=== PATIENT | female | born 1970 | race Caucasian/White ===

== ENCOUNTER 2017-09-09 16:55 | Emergency (ER) | payer OTHER ==
[~2017-09-09] VITALS: Ht 170.2 cm; Wt 64.4 kg
[~2017-09-09 16:55] MED LIST: BENZONATATE200 MG PO; IBUPROFEN800 MG PO; LEVAQUIN750 MG PO; PERCOCET 7.5-31 EACH PO; SUMATRIPTAN20 MG NAS
[2017-09-09] MEDS ORDERED: ZITHROMAX250 MG PO (19:35)
[2017-09-09] MEDS ORDERED: GUAIFENESIN AC473 ML (19:36)
[2017-09-09] MEDS ORDERED: SUMATRIPTAN SUC25 MG PO (19:36)
[2017-09-09] MEDS ORDERED: DELTASONE20 MG PO (19:39)
[2017-09-09] MEDS ORDERED: TAMIFLU75 MG PO (21:28)
== END 2017-09-09 21:48 | disposition home or self-care (01) ==
LOC: ED 16:55
DX: J98.8 Other specified respiratory disorders (principal); B97.89 Other viral agents as the cause of diseases classified elsewhere; G43.909 Migraine, unspecified, not intractable, without status migrainosus; Z88.2 Allergy status to sulfonamides; Z88.8 Allergy status to other drugs, medicaments and biological substances; Z79.899 Other long term (current) drug therapy; Z79.52 Long term (current) use of systemic steroids
CPT/HCPCS: 71010; 80053; 81001; 83605; 85025; 87502; 96360; 99283; J7030

== ENCOUNTER 2025-01-26 01:56 | Emergency (ER) | payer OTHER ==
[~2025-01-26] VITALS: Ht 170.2 cm; Wt 66.0 kg
[~2025-01-26 01:56] MED LIST changes: +DELTASONE20 MG PO; +GUAIFEN-CODEINE10 ML PO; +GUAIFENESIN AC473 ML; +ONDANSETRON ODT8 MG PO; +SUMATRIPTAN SUC25 MG PO; +TAMIFLU75 MG PO; +ZITHROMAX250 MG PO
[2025-01-26] MEDS ORDERED: IBUPROFEN 600 MG TAB PO ONE (02:15)
[2025-01-26] MEDS ORDERED: HYDROCODON-ACE1 EA10 PO (02:28)
[2025-01-26] MEDS ORDERED: HYDROCODONE BIT/ACETAMINOPHEN 5/325 MG 1 TAB HOME.PACK PO ONE (02:30)
[2025-01-26 03:02] VITALS: BP 135/83
== END 2025-01-26 02:55 | disposition home or self-care (01) ==
LOC: ED 01:56
DX: S52.572A Other intraarticular fracture of lower end of left radius, initial encounter for closed fracture (principal); W08.XXXA Fall from other furniture, initial encounter; Z88.2 Allergy status to sulfonamides; Z79.899 Other long term (current) drug therapy; Z79.2 Long term (current) use of antibiotics
CPT/HCPCS: 29125; 73110; 99283; A9270